=== PATIENT | female | born 1950 | race African-American/Black ===

== ENCOUNTER 2017-10-15 07:27 | Emergency (ER) | payer MEDICARE, MEDICAID ==
[~2017-10-15] VITALS: Ht 154.9 cm; Wt 60.0 kg
[~2017-10-15 07:27] MED LIST: AMLO5 PO; CIPR750T10 PO; FLAG500T PO; LEVA750T PO; LISI10 PO; LORTA5 PO; METR-1 PO
[2017-10-15 07:30] VITALS: BP 166/93; PULSE 102; RESP 16; TEMP 98.1; O2SAT 98
[2017-10-15] MEDS ORDERED: AMLO5TAB2 PO (07:58)
[2017-10-15] MEDS ORDERED: KETOROLAC TROMETHAMINE 60 MG/2 ML (IM) VIAL IM ONE (08:15)
--- NOTE | 2017-10-15 08:17 | PD ---
HPI Chief Complaint: Pain: Acute or Chronic Time Seen by Provider: 07:58 Travel History International Travel<30 days: No Contact w/Intl Traveler<30days: No Traveled to known affect area: No History of Present Illness HPI 67-year-old female presents to the emergency department with complaint of right lateral hip pain that radiates to her knee for the past 5 days. Denies injury. Says she woke up with the pain. Pain is worsened yesterday and today. Denies encopresis, incontinence, saddle anesthesias. Denies IV drug use, cancer. Denies paresthesias, loss of sensation, decreased range of motion, decreased strength to bilateral lower extremities. Says when she woke up this morning it felt like her right leg was going to give out when she stood up out of bed because of the pain. Denies dysuria, hematuria, urinary frequency. Denies fever, vomiting. Has tried icy hot and hot showers with good relief of symptoms, but does not last long. Worse with standing up and walking. Better with icy hot and hot showers. Rates pain 10/10. Describes a stabbing sensation. Primary care provider is [facility]. History of HIV. Denies other significant past medical history. No known allergies. Has no other medical complaints. No other modifying factors or associated signs and symptoms. PFSH Past Medical History Arthritis: No Asthma: No Autoimmune Disease: Yes (HIV ) Heart Rhythm Problems: No Cardiovascular Problems: No High Cholesterol: No Chest Pain: No COPD: No Cerebrovascular Accident: No Diabetes: Yes (GESTATIONAL DIABETES 1992) Patient Takes Glucophage: No Diminished Hearing: No GERD: No Glaucoma: No Headaches: No Hepatitis: No Hiatal Hernia: No Hypertension: Yes Immune Disorder: Yes (HIV ) Kidney Stones: No Immunizations Current: No Myocardial Infarction: No Renal Failure: No Seizures: No Sleep Apnea: No Thyroid Disease: No Ulcer: No Tetanus Vaccination: > 5 Years Influenza Vaccination: No ?: Not Menopausal: Yes Past Surgical History Abdominal Surgery: Yes (REMOVAL OF MASS IN THE COLON 05/2017 ( BENIGN ) ) AICD: No Pacemaker: No Other Surgery: No Social History Alcohol Use: No Tobacco Use: Yes (06/28 PPD ) Substance Use: No Allergies-Medications (Allergen,Severity, Reaction): Coded Allergies: No Known Allergies (Verified Adverse Reaction, Unknown, 10/15/17) Reported Meds & Prescriptions Reported Meds & Active Scripts Active Walker/Adult/Folding (Device) 1 Mis Mis Ea .XX DIRECTED Ibuprofen 600 Mg Tab 600 Mg PO Q6H PRN Reported Amlodipine (Amlodipine Besylate) 5 Mg Tab 5 Mg PO DAILY Review of Systems Except as stated in HPI: all other systems reviewed are Neg Physical Exam Narrative GENERAL: Well-nourished, well-developed black female patient, in no acute distress; afebrile, nontoxic-appearing SKIN: Warm and dry. HEAD: Atraumatic. Normocephalic. EYES: Pupils equal and round. No scleral icterus. No injection or drainage. ENT: Mucosa pink and moist. Airway patent. NECK: Trachea midline. CARDIOVASCULAR: Regular rate. RESPIRATORY: No accessory muscle use. GASTROINTESTINAL: Rounded. MUSCULOSKELETAL: Bilateral lower extremities supple and non-tense with 2+ pedal pulses and sensory intact; with full range of motion and 5/5 strength. 2 + DTRs bilaterally. Active dorsiflexion and extension of bilateral feet. Right straight leg raise is negative for low back pain. Ambulatory in room with normal gait. Sitting up in bed at 90. No leg length discrepancy. No tenderness on abduction of the right leg. Tenderness on palpation to the right lateral hip; skin is without erythema, edema, ecchymosis. No obvious deformities. No clubbing. No cyanosis. No edema. BACK: No midline point tenderness on palpation of the lumbar spine. No obvious deformities. NEUROLOGICAL: Awake and alert. Oriented 3. No obvious cranial nerve deficits. Motor grossly within normal limits. Normal speech. Moves all extremities. 5/5 strength to all extremities. Sensory intact. PSYCHIATRIC: Appropriate mood and affect; insight and judgment normal. Data Data Last Documented VS Vital Signs Date Time Temp Pulse Resp B/P (MAP) Pulse Ox O2 Delivery O2 Flow Rate FiO2 10/15/17 10:50 80 18 97 10/15/17 07:30 98.1 166/93 (117) Orders Orders Urinalysis - C+S If Indicated (10/15/17 08:00) Hip, Uni(Ap&Lat) W Ap Pelvis (10/15/17 08:10) Ketorolac Inj (Toradol Inj) (10/15/17 08:15) Ed Discharge Order (10/15/17 10:26) Labs Laboratory Tests Test 10/15/17 08:46 Urine Color LIGHT-YELLOW Urine Turbidity CLEAR Urine pH 6.5 Urine Specific [place] 1.012 Urine Protein NEG mg/dL Urine Glucose (UA) NEG mg/dL Urine Ketones NEG mg/dL Urine Occult Blood NEG Urine Nitrite NEG Urine Bilirubin NEG Urine Urobilinogen LESS THAN 2.0 MG/DL Urine Leukocyte Esterase TRACE Urine RBC LESS THAN 1 /hpf Urine WBC 1 /hpf Urine Squamous Epithelial Cells 2 /hpf Urine Mucus FEW /lpf Microscopic Urinalysis Comment CULT NOT INDICATED MDM Medical Decision Making Medical Screen Exam Complete: Yes Emergency Medical Condition: Yes Medical Record Reviewed: Yes Differential Diagnosis Arthritis, bursitis, fracture, sciatica Narrative Course 67-year-old female with pain to her right lateral hip area. Denies encopresis, incontinence, saddle anesthesias. Denies IV drug use or cancer. Patient is afebrile nontoxic pain. No midline tenderness on palpation of the lumbar spine. I will x-ray the right hip and urinalysis to rule out any acute findings. Right hip x-ray, Toradol, urinalysis ordered. 0916: Urinalysis without signs of infection. 0954: Right hip x-ray concludes: Hip and Pelvis X-Ray 10/15/17 0810 Signed Impressions: Service Date/Time: Sunday, October 15, 2017 08:29 - CONCLUSION: Stable sclerotic bone island in the right superior pubic rami. The hips are symmetric and intact. Júnior Garber MD Provided a copy of the x-ray report. Walker and ibuprofen prescribed for home. Instructed patient to follow-up with orthopedics as needed. Instructed patient to follow up with primary care provider. Patient verbalizes understanding and agreement with treatment plan. Patient is medically cleared and stable for discharge. Discussed reasons to return to the emergency department. Patient agrees with treatment plan. The patients vital signs are stable and the patient is stable for outpatient follow-up and treatment. Patient discharged home, stable and in no acute distress. Diagnosis Primary Impression: Right hip pain Referrals: [facility] Primary Care Physician Patient Instructions: General Instructions, Hip Pain (ED) Departure Forms: Tests/Procedures, Work Release Enter return to work date: Oct 17, 2017 Additional Instructions: Tylenol or ibuprofen as directed and as needed for pain and inflammation Rest, ice, compress, and elevate extremity to decrease pain and inflammation Walker as needed for support with walking Avoid aggravating activity; increase activity as tolerated Follow-up with primary care provider Follow-up with orthopedics Return to the emergency department immediately with worsening of symptoms Med/Other Pt SpecificInfo: Prescription(s) given Scripts Walker/Adult/Folding (Walker/Adult/Folding) 1 Mis Mis EA .XX DIRECTED, #1 0 Refills Prov: Claudia Torres 10/15/17 Ibuprofen (Ibuprofen) 600 Mg Tab 600 MG PO Q6H Y for PAIN, #20 TAB 0 Refills Prov: Claudia Torres 10/15/17 Disposition: 01 DISCHARGE HOME Condition: Stable Claudia Torres Oct 15, 2017 08:17
[2017-10-15 09:11] LABS: BILIRUBIN, URINE NEG (NEG); BLOOD, URINE NEG (NEG); GLUCOSE,URINE NEG (NEG); KETONE, URINE NEG (NEG); MUCUS URINE FEW /lpf (OCC); NITRITE,URINE NEG (NEG); PH, URINE 6.5 (5.0-8.5); SQUAMOUS EPITHELIAL CELL URINE 2 /hpf (0-5); URINE COLOR LIGHT-YELLOW (YELLW/STRAW); URINE LEUKOCYTE ESTERASE TRACE (NEG)
--- NOTE | 2017-10-15 09:20 | RADRPT ---
EXAM DATE/TIME: 10/15/2017 08:29 [facility] COMPARISON: CT ABDOMEN & PELVIS W CONTRAST, November 14, 2015, 17:29. INDICATIONS : Right hip pain, no injury. MEDICAL HISTORY : None. SURGICAL HISTORY : None. ENCOUNTER: Initial ACUITY: 4 - 6 days PAIN SCORE: 7/10 LOCATION: Right hip FINDINGS: Examination of the right hip was performed with AP Pelvis. The primary and secondary trabecular ling [place] of the femoral neck is intact. The hip joint is of normal width without significant sclerosis or bony hypertrophy. There is a 1.2 cm sclerotic foci involving the left superior pubic ramus. This is stable the parents are not characteristic of a bone island. The acetabulum is grossly intact. CONCLUSION: Stable sclerotic bone island in the right superior pubic rami. The hips are symmetric and intact. Júnior Garebr MD on October 15, 2017 at 9:16 Board Certified Radiologist. This report was verified electronically.
[2017-10-15] MEDS ORDERED: WALKER/ADULT/FO1 MIS (10:25)
[2017-10-15] MEDS ORDERED: IBUP-232 PO (10:25)
== END 2017-10-15 10:52 | disposition home or self-care (01) ==
LOC: NEPD 07:27
DX: M25.551 Pain in right hip (principal); I10 Essential (primary) hypertension; F17.210 Nicotine dependence, cigarettes, uncomplicated; Z21 Asymptomatic human immunodeficiency virus [HIV] infection status
CPT/HCPCS: 73502; 81001; 96372; 99284; J1885